=== PATIENT | female | born 1965 | race Caucasian/White ===

== ENCOUNTER 2016-09-06 06:56 | Day surgery (SDC) | payer BC, OTHER ==
--- NOTE | ~2016-09-06 | EGD ---
EGD REPORT [facility] [address] [address] NAME: ALVINA BLACK : [birth year] STATUS : REG [facility]#: [id number] AGE: 51 ADM/REG DATE : 09/06/16 MR#: [id number] REPORT SERV DATE: 09/06/16 DICTATED BY: VIJAY DUNN DATE: 09/06/16 REPORT STATUS : Draft TRANSCRIBED BY: [facility] DATE: 09/06/16 Endoscopy Center Patient Name: Alvina Black Date of : 1965 Attending MD: VIJAY DUNN MD Procedure Date No Time: 09/06/2016 Procedure: Colonoscopy Indications: Abdominal pain in the left lower quadrant Referring MD: Mateo Dangelo Medicines: as per anesthesia Complications: No immediate complications. Procedure: Pre-Anesthesia Assessment: - ASA Grade Assessment: III - A patient with severe systemic disease. After I obtained informed consent, the scope was passed under direct vision. Throughout the procedure, the patient's blood pressure, pulse, and oxygen saturations were monitored continuously. The PCF [id number] was introduced through the anus and advanced to the cecum, identified by appendiceal orifice and ileocecal valve. The colonoscopy was performed without difficulty. The patient tolerated the procedure. The quality of the bowel preparation was fair. Findings: The perianal and digital rectal examinations were normal. A sessile polyp was found in the descending colon. The polyp was 4 mm in size. The polyp was removed with a cold biopsy forceps. Resection and retrieval were complete. A semi-sessile polyp was found in the sigmoid colon. The polyp was 8 mm in size. The polyp was removed with a hot snare. Resection and retrieval were complete. Internal hemorrhoids were found during endoscopy and were mild. Impression: - One 4 mm polyp in the descending colon. Resected and retrieved. - One 8 mm polyp in the sigmoid colon. Resected and retrieved. - Internal hemorrhoids. Recommendation: - Await pathology results. - Repeat colonoscopy for surveillance based on pathology results. Procedure Code(s): --- Professional --- EGD REPORT [address] [address] NAME: ALVINA BLACK : [birth year] STATUS : REG [facility]#: [id number] AGE: 51 ADM/REG DATE : 09/06/16 MR#: [id number] REPORT SERV DATE: 09/06/16 DICTATED BY: VIJAY DUNN. DATE: 09/06/16 REPORT STATUS : Draft TRANSCRIBED BY: [employer] DATE: 09/06/16 [id number], Colonoscopy, flexible, proximal to splenic flexure; with removal of tumor(s), polyp(s), or other lesion(s) by snare technique 33597, 59, Colonoscopy, flexible, proximal to splenic flexure; with biopsy, single or multiple Diagnosis Code(s): --- Professional --- D12.5, Benign neoplasm of sigmoid colon D12.4, Benign neoplasm of descending colon K64.8, Other hemorrhoids R10.32, Left lower quadrant pain CPT copyright 2013 [employer]. All rights reserved. The codes documented in this report are preliminary and upon bin tripper operator review may be revised to meet current compliance requirements. VIJAY DUNN MD 09/06/2016 8:40 AM This report has been signed electronically. Number of Addenda: 0 Note Initiated On: 09/06/2016 7:49 AM Scope Withdrawal Time 0 hours 13 minutes 34 seconds [address] [address]
--- NOTE | ~2016-09-06 | EGD ---
EGD REPORT [facility] [address] [address] NAME: ALVINA BLACK : [birth year] STATUS : REG [facility]#: [id number] AGE: 51 ADM/REG DATE : 09/06/16 MR#: [id number] REPORT SERV DATE: 09/06/16 DICTATED BY: VIJAY DUNN DATE: 09/06/16 REPORT STATUS : Draft TRANSCRIBED BY: [employer] DATE: 09/06/16 Endoscopy Center Patient Name: Alvina Black Date of : 1965 Attending MD: VIJAY DUNN MD Procedure Date No Time: 09/06/2016 Procedure: Upper GI endoscopy Indications: Heartburn, Suspected esophageal reflux, Nausea, Personal history of peptic ulcer disease Referring MD: Mateo Dangelo Medicines: as per anesthesia Complications: No immediate complications. Procedure: Pre-Anesthesia Assessment: - ASA Grade Assessment: III - A patient with severe systemic disease. After obtaining informed consent, the endoscope was passed under direct vision. Throughout the procedure, the patient's blood pressure, pulse, and oxygen saturations were monitored continuously. The GIF H190 [id number] was introduced through the mouth, and advanced to the third part of duodenum. The upper GI endoscopy was accomplished without difficulty. The patient tolerated the procedure. Findings: The examined esophagus was normal. A small hiatus hernia was present. The examined duodenum was normal. Impression: - Normal esophagus. - Hiatus hernia. - Normal examined duodenum. Recommendation: - Follow an antireflux regimen. - Continue present medications. Procedure Code(s): --- Professional --- 90769, Esophagogastroduodenoscopy, flexible, transoral; diagnostic, including collection of specimen(s) by brushing or washing, when performed (separate procedure) Diagnosis Code(s): --- Professional --- K44.9, Diaphragmatic hernia without obstruction or gangrene R12, Heartburn EGD REPORT [facility] [address] [address] NAME: ALVINA BLACK : [birth year] STATUS : REG [facility] PAT#: [id number] AGE: 51 ADM/REG DATE : 09/06/16 MR#: [id number] REPORT SERV DATE: 09/06/16 DICTATED BY: VIJAY DUNN. DATE: 09/06/16 REPORT STATUS : Draft TRANSCRIBED BY: [employer] DATE: 09/06/16 R11.0, Nausea Z87.11, Personal history of peptic ulcer disease CPT copyright 2013 [employer]. All rights reserved. The codes documented in this report are preliminary and upon ux interaction designer review may be revised to meet current compliance requirements. VIJAY DUNN MD 09/06/2016 8:13 AM This report has been signed electronically. Number of Addenda: 0 Note Initiated On: 09/06/2016 7:54 AM Scope Withdrawal Time 0 hours 0 minutes 0 seconds [address] [id number]
[~2016-09-06 06:56] MED LIST: AMLODIPINE; ATV.5 PO; BUSPAR15 M1 PO; CLARIT10 PO; CRANBERRY400 MG PO; CRESTOR20 MG PO; CYMBALTA60 PO; ESTROVEN; INNOPRAN XL120 MG PO; LIBRAX; LISINOPRIL40 MG PO; LUNESTA3 MG PO; LYRICA150 MG PO; MULTIPLE VIT PO; PRILOSEC40 MG PO; TOPAMAX50 MG PO; TRICOR145 PO; ZANAFLEX 4 MG TA4 MG; ZANTAC150 MG PO; ZETIA PO; [UNRECOGNIZED DRUG - OTHER]
== END 2016-09-06 23:59 | disposition home or self-care (01) ==
LOC: DMU 06:56
PROVIDERS: Internal Medicine Gastroenterology
PROC: 0DBM8ZZ Excision of Descending Colon, Via Natural or Artificial Opening Endoscopic (ICD-10-PCS; principal; 2016-09-06 08:00)
PROC: 0DBN8ZZ Excision of Sigmoid Colon, Via Natural or Artificial Opening Endoscopic (ICD-10-PCS; 2016-09-06 08:00)
PROC: 0DJ08ZZ Inspection of Upper Intestinal Tract, Via Natural or Artificial Opening Endoscopic (ICD-10-PCS; 2016-09-06 08:00)
DX: D12.4 Benign neoplasm of descending colon (principal); D12.5 Benign neoplasm of sigmoid colon; K64.8 Other hemorrhoids; R10.12 Left upper quadrant pain; K44.9 Diaphragmatic hernia without obstruction or gangrene; R12 Heartburn; R11.0 Nausea; Z87.11 Personal history of peptic ulcer disease; Z88.8 Allergy status to other drugs, medicaments and biological substances; G43.909 Migraine, unspecified, not intractable, without status migrainosus; I10 Essential (primary) hypertension; E78.00 Pure hypercholesterolemia, unspecified; M54.2 Cervicalgia; G57.90 Unspecified mononeuropathy of unspecified lower limb; Z79.899 Other long term (current) drug therapy
CPT/HCPCS: 88305; J2370